=== PATIENT | male | born 1985 | race Caucasian/White ===

== ENCOUNTER 2018-07-26 11:16 | Emergency (ER) | payer BC ==
[2018-07-26] MEDS ORDERED: guaiFENesin 600 MG Tab.ER PO ONE (12:17)
--- NOTE | 2018-07-26 12:35 | EDM.PDOC ---
ED HPI GENERAL MEDICAL PROBLEM - General Chief Complaint: Respiratory Problem Stated Complaint: FLU LIKE SYMPTOMS, SHAKEY/LIGHT HEADED Time Seen by Provider: 07/26/18 12:09 Source of Information: Reports: Patient History Limitations: Reports: No Limitations - History of Present Illness INITIAL COMMENTS - FREE TEXT/NARRATIVE: Patient is a 33-year-old male presents ED complaining of generalized flu like symptoms. States this past developed a cough, fever, headache, body aches, sinus congestion, runny nose, and postnasal drip. States Thursday and Thursday he was very ill and was not able to go to work. States Thursday he was feeling better. Today he went to work and states at times he does feel lightheaded, with generalized muscle aches, and also productive cough. He continues to have some sinus congestion denies any dizziness with standing, body position changes, and/or turning his head left to right. Denies any sore throat, chest pain, shortness of breath, abdominal pain, rash, nausea vomiting, and/or stiff neck. He states multiple coworkers have similar symptoms. There has been no documented fever. This is been subjective only. He does not have any previous past medical history. Currently taking no medications. He's had multiple tubes placed to his ears bilaterally. Alcohol use social. Denies any smoking or recreational drug use. He does no PCP here locally. He did not receive the flu vaccination. Generalized Pain Score (Numeric/FACES): 4 - Related Data Allergies Allergy/AdvReac Type Severity Reaction Status Date / Time No Known Allergies Allergy Verified 07/26/18 11:47 Home Meds: Home Meds . [No Known Home Meds] 07/26/18 [History] Past Medical History - Past Health History Medical/Surgical History: Denies Medical/Surgical History Social & Family History - Tobacco Use Smoking Status *Q: Never Smoker ED ROS GENERAL - Review of Systems Review Of Systems: ROS reveals no pertinent complaints other than HPI. ED EXAM, GENERAL - Physical Exam Exam: See Below Exam Limited By: No Limitations General Appearance: Alert, WD/WN, No Apparent Distress Eye Exam: Bilateral Eye: EOMI, Nystagmus (None noted), PERRL, Vision Changes ( None stated) Ears: Normal External Exam, Normal Canal, Hearing Grossly Normal, Other (TMs bilaterally have scar tissue present. No erythema, swelling, perforation, and/ or drainage noted. Conal light reflexes in the perspective's position.) Nose: Normal Inspection Throat/Mouth: Normal Voice, No Airway Compromise Head: Atraumatic, Normocephalic Neck: Normal Inspection, Supple, Non-Tender, Full Range of Motion. No: Lymphadenopathy (L), Lymphadenopathy (R) Respiratory/Chest: No Respiratory Distress, Lungs Clear, Normal Breath Sounds, No Accessory Muscle Use, Chest Non-Tender Cardiovascular: Normal Peripheral Pulses, Regular Rate, Rhythm, No Murmur Peripheral Pulses: 2+: Radial (L) GI/Abdominal: Normal Bowel Sounds, Soft, Non-Tender, No Organomegaly, No Distention Back Exam: Normal Inspection Extremities: Normal Inspection, Normal Range of Motion, Non-Tender, No Pedal Edema Neurological: Alert, Oriented, CN II-XII Intact, Normal Cognition, Normal Gait, No Motor/Sensory Deficits Psychiatric: Normal Affect, Normal Mood Skin Exam: Warm, Dry, Intact, Normal Color, No Rash Course - Vital Signs Last Recorded V/S: Last Vital Signs Temp 98.5 F 07/26/18 11:47 Pulse 60 07/26/18 11:47 Resp 18 07/26/18 11:47 BP 160/85 H 07/26/18 11:47 Pulse Ox 100 07/26/18 11:47 - Orders/Labs/Meds Orders: Active Orders 24 hr Category Date Time Status EKG 12 Lead [EKG Documentation Completion] [RC] STAT Care 07/26/18 12:29 Active Labs: Laboratory Tests 07/26/18 07/26/18 Range/Units 12:45 12:45 WBC 6.50 (4.23-9.07) K/mm3 RBC 5.26 (4.63-6.08) M/mm3 Hgb 15.9 (13.7-17.5) gm/L Hct 46.3 (40.1-51.0) % MCV 88.0 (79.0-92.2) fl MCH 30.2 (25.7-32.2) pg MCHC 34.3 (32.2-35.5) g/dl RDW Std Deviation 44.0 H (35.1-43.9) fL Plt Count 254 (163-337) K/mm3 MPV 9.5 (9.4-12.3) fl Neutrophils % (Manual) 39 L (40-60) % Band Neutrophils % 0 (0-10) % Lymphocytes % (Manual) 54 H (20-40) % Atypical Lymphs % 0 % Monocytes % (Manual) 4 (2-10) % Eosinophils % (Manual) 3 (0.8-7.0) % Basophils % (Manual) 0 L (0.2-1.2) Platelet Estimate Adequate RBC Morph Comment Normal Sodium 142 (136-145) mEq/L Potassium 3.8 (3.5-5.1) mEq/L Chloride 107 (98-107) mEq/L Carbon Dioxide 24 (21-32) mEq/L Anion Gap 14.8 (5-15) BUN 8 (7-18) mg/dL Creatinine 0.8 (0.7-1.3) mg/dL Est Cr Clr Drug Dosing 144.15 mL/min Estimated GFR (MDRD) > 60 (>60) mL/min BUN/Creatinine Ratio 10.0 L (14-18) Glucose 93 (74-106) mg/dL Calcium 8.7 (8.5-10.1) mg/dL Total Bilirubin 0.3 (0.2-1.0) mg/dL AST 21 (15-37) U/L ALT 51 (16-63) U/L Alkaline Phosphatase 58 (46-116) U/L C-Reactive Protein 1.2 H* (<1.0) mg/dL Total Protein 7.4 (6.4-8.2) g/dl Albumin 3.7 (3.4-5.0) g/dl Globulin 3.7 gm/dL Albumin/Globulin Ratio 1.0 (1-2) Meds: Medications Discontinued Medications Generic Name Dose Route Start Last Admin Trade Name Freq PRN Reason Stop Dose Admin Guaifenesin 1,200 mg 07/26/18 12:17 07/26/18 12:25 Mucinex PO 07/26/18 12:18 1,200 mg ONETIME ONE Administration - Re-Assessments/Exams Free Text/Narrative Re-Assessment/Exam: Patient is concerned he may have influenza and at worst pneumonia. Thus will obtain some basic labs including: CBC, chem 14, CRP, influenza screen, chest x- ray, and also EKG. There is no for a relative's with heart disease. Nor does he have any risk factors himself. Labs reviewed: CBC and chem 14 were essentially normal. CRP is 1.2. Influenza screen was negative. Chest x-ray indicated less than optimal chest x-ray. Nothing acute is suspected on portable chest x-ray. EKG sinus rhythm at a rate of 61 with QTC of 428 and normal IN interval 181. Probable normal early repolarization pattern noted. No acute ST changes noted per reviewed with Dr. Clay. Patient has what appears to be a viral upper respiratory infection. Symptomatic treatment is appropriate. Discharge instructions have been provided. Return precautions discussed with the patient with no further questions or concerns. He agrees with plan. Departure - Departure Time of Disposition: 14:03 Disposition: Home, Self-Care 01 Condition: Good Clinical Impression: Viral upper respiratory tract infection with cough - Discharge Information Instructions: Upper Respiratory Infection, Adult, [id number] Referrals: PCP,Unknown [Ordering Only Provider] - Forms: ED Department Discharge, ED Return to Work/School Form Additional Instructions: Utilize Flonase 1 spray to each nares twice a day, Claritin 10 mg every day, Mucinex 600 mg one tab twice a day, and nasal saline spray 1 spray to each nares every hour while awake. Push the fluids. Ensure adequate rest. Utilize Tylenol and ibuprofen for any headaches/body aches. Follow-up with PCP in the next week if symptoms persist. Please return back to the ED if you develop any new or worsening symptoms. - My Orders Last 24 Hours: My Active Orders 07/26/18 12:29 EKG 12 Lead [EKG Documentation Completion] [RC] STAT - Assessment/Plan Last 24 Hours: My Active Orders 07/26/18 12:29 EKG 12 Lead [EKG Documentation Completion] [RC] STAT
--- NOTE | 2018-07-26 12:53 | CR ---
Chest: Portable view of the chest was obtained. Comparison: No prior chest x-ray. Heart size and mediastinum are normal. Lungs are clear with no acute parenchymal change. Bony structures are unremarkable. Slightly limited inspiratory study is noted. Impression: 1. Less than optimal chest x-ray. Nothing acute is suspected on portable chest x-ray. Diagnostic code #2
== END 2018-07-26 14:47 | disposition home or self-care (01) ==
LOC: JD.ED 11:16
DX: J06.9 Acute upper respiratory infection, unspecified (principal)
CPT/HCPCS: 36415; 71045; 80053; 85007; 85027; 86140; 87804; 93005; 99284; A9270; 99282

== ENCOUNTER 2020-12-08 13:46 | Emergency (ER) | payer BC ==
[2020-12-08] MEDS ORDERED: Ondansetron 4 MG/2 ML SDV IVPUSH ONE (14:09)
[2020-12-08] MEDS ORDERED: Sodium Chloride 0.9% 10 ML Syringe FLUSH PRN ×2 (14:09→14:45)
[2020-12-08] MEDS ORDERED: HYDROmorphone 1 MG/ML Syringe IVPUSH STA (14:09)
[2020-12-08] MEDS ORDERED: Sodium Chloride 0.9% 1,000 ML IV SCH (14:15)
--- NOTE | 2020-12-08 14:22 | EDM.PDOC ---
ED HPI GENERAL MEDICAL PROBLEM - General Chief Complaint: Abdominal Pain Stated Complaint: ABDOMINAL PAIN Time Seen by Provider: 12/08/20 13:57 Source of Information: Reports: Patient, RN Notes Reviewed History Limitations: Reports: No Limitations - History of Present Illness INITIAL COMMENTS - FREE TEXT/NARRATIVE: Patient is a 35-year-old male who presents to the ER for the evaluation of his left lower quadrant abdominal pain. Patient notes that he developed this last night, and it has worsened this morning, and throughout the day, he tried to go to work but ended up having to leave due to the pain. Patient states that he is having waves of pain, he states that they are fairly intense when they do hip. States that it made him sweat profusely due to the pain. He states nothing really seems to make this worse or better, he did take 1 dose of Aleve, but again did not notice much difference. Not complaining of any blood in his urine. States he has had a pain like this about 1 year ago, where he thought he maybe had some gas in his abdomen he took a gas relieving pill and this seemed to help. States that this seems a little bit worse, and not exactly the same so he did not take any gas medication today. Patient states he has had a cholecystectomy, and he still retains his appendix, and does have an umbilical hernia, that is still reducible at this time. He states there is no pain around the umbilical hernia. Patient notes that he had a bowel movement this morning, but it did hurt quite a bit when he put pressure on his abdomen when he had to bear down. Patient denies any other sick-like symptoms, fever/chills, cough/shortness of breath, nausea/vomiting/diarrhea. Has no primary care provider, takes no regular medications, and denies any med allergies. Left Lower Abdomen Pain Score (Numeric/FACES): 8 - Related Data Allergies Allergy/AdvReac Type Severity Reaction Status Date / Time No Known Allergies Allergy Verified 12/08/20 13:56 Home Meds: Home Meds Amoxicillin/Clavulanate K [Augmentin 875-125 MG] 1 tab PO BID #14 tablet [Rx] Past Medical History - Past Health History Medical/Surgical History: Denies Medical/Surgical History Endocrine/Metabolic History: Reports: Obesity/BMI 30+ - Past Surgical History HEENT Surgical History: Reports: Myringotomy w Tube(s) GI Surgical History: Reports: Cholecystectomy Social & Family History - Tobacco Use Tobacco Use Status *Q: Never Tobacco User - Caffeine Use Caffeine Use: Reports: Energy Drinks - Recreational Drug Use Recreational Drug Use: No ED ROS GENERAL - Review of Systems Review Of Systems: Comprehensive ROS is negative, except as noted in HPI. ED EXAM, GI/ABD - Physical Exam Exam: See Below Exam Limited By: No Limitations General Appearance: Alert, WD/WN, No Apparent Distress Respiratory/Chest: No Respiratory Distress, Lungs Clear, Normal Breath Sounds, No Accessory Muscle Use, Chest Non-Tender Cardiovascular: Normal Peripheral Pulses, Regular Rate, Rhythm, No Edema GI/Abdominal Exam: Normal Bowel Sounds, Soft, No Distention, No Mass, Tender (LLQ with exquisite tenderness on palpation. Umbilical hernia is still reducable This is located at 12-1 o clock near the umbilicus), Hernia (umbilical hernia noted at 12-1 o clock, reducable and nontender) Neurological: Alert, Oriented, Normal Cognition, No Motor/Sensory Deficits Psychiatric: Normal Affect, Normal Mood Skin Exam: Warm, Dry, Intact, Normal Color, No Rash Course - Vital Signs Last Recorded V/S: Last Vital Signs Temp 96.5 F L 12/08/20 13:52 Pulse 89 12/08/20 13:52 Resp 18 12/08/20 13:52 BP 163/83 H 12/08/20 13:52 Pulse Ox 98 12/08/20 13:52 - Orders/Labs/Meds Orders: Active Orders 24 hr Category Date Time Status Peripheral IV Care [RC] . DIRECTED Care 12/08/20 14:11 Ordered Abdomen Pelvis w Cont [CT] Stat Exams 12/08/20 14:09 Ordered Sodium Chloride 0.9% [Normal Saline] 1,000 ml Med 12/08/20 14:15 Ordered IV ASDIRECTED Sodium Chloride 0.9% [Saline Flush] Med 12/08/20 14:09 Ordered 10 ml FLUSH ASDIRECTED PRN Sodium Chloride 0.9% [Saline Flush] Med 12/08/20 14:45 Active 10 ml FLUSH ONETIME PRN Peripheral IV Insertion Adult [OM.PC] Stat Oth 12/08/20 14:09 Ordered Medication Orders Sodium Chloride (Normal Saline) 1,000 mls @ 999 mls/hr IV ASDIRECTED TRACEY Last Admin: 12/08/20 14:21 Dose: 999 mls/hr Documented by: JONELLE Sodium Chloride (Sodium Chloride 0.9% 10 Ml Syringe) 10 ml FLUSH ASDIRECTED PRN PRN Reason: Keep Vein Open Last Admin: 12/08/20 14:22 Dose: 10 ml Documented by: JONELLE Sodium Chloride (Sodium Chloride 0.9% 10 Ml Syringe) 10 ml FLUSH ONETIME PRN PRN Reason: IV FLUSH Last Admin: 12/08/20 15:35 Dose: 10 ml Documented by: MICHAEL Labs: Laboratory Tests 12/08/20 12/08/20 12/08/20 Range/Units 14:15 14:15 15:03 WBC 16.48 H (4.23-9.07) K/mm3 RBC 4.81 (4.63-6.08) M/mm3 Hgb 15.0 (13.7-17.5) gm/dl Hct 43.2 (40.1-51.0) % MCV 89.8 (79.0-92.2) fl MCH 31.2 (25.7-32.2) pg MCHC 34.7 (32.2-35.5) g/dl RDW Std Deviation 43.1 (35.1-43.9) fL Plt Count 262 (163-337) K/mm3 MPV 9.6 (9.4-12.3) fl Neut % (Auto) 82.1 H (34.0-67.9) % Lymph % (Auto) 9.0 L (21.8-53.1) % [place] % (Auto) 8.1 (5.3-12.2) % Eos % (Auto) 0.4 L (0.8-7.0) Baso % (Auto) 0.2 (0.1-1.2) % Neut # (Auto) 13.52 H (1.78-5.38) K/mm3 Lymph # (Auto) 1.49 (1.32-3.57) K/mm3 [place] # (Auto) 1.34 H (0.30-0.82) K/mm3 Eos # (Auto) 0.07 (0.04-0.54) K/mm3 Baso # (Auto) 0.03 (0.01-0.08) K/mm3 Manual Slide Review Abnormal smear Sodium 141 (136-145) mEq/L Potassium 3.7 (3.5-5.1) mEq/L Chloride 104 (98-107) mEq/L Carbon Dioxide 25 (21-32) mEq/L Anion Gap 15.7 H (5-15) BUN 15 (7-18) mg/dL Creatinine 1.0 (0.7-1.3) mg/dL Est Cr Clr Drug Dosing 113.17 mL/min Estimated GFR (MDRD) > 60 (>60) mL/min BUN/Creatinine Ratio 15.0 (14-18) Glucose 108 H (70-99) mg/dL Calcium 8.6 (8.5-10.1) mg/dL Total Bilirubin 0.5 (0.2-1.0) mg/dL AST 21 (15-37) U/L ALT 70 H (16-63) U/L Alkaline Phosphatase 84 (46-116) U/L C-Reactive Protein 10.6 H* (<1.0) mg/dL Total Protein 7.8 (6.4-8.2) g/dl Albumin 3.8 (3.4-5.0) g/dl Globulin 4.0 gm/dL Albumin/Globulin Ratio 1.0 (1-2) Lipase 91 (73-393) U/L Urine Color Yellow (Yellow) Urine Appearance Slt cloudy H (Clear) Urine pH 6.0 (5.0-8.0) Ur Specific [place] > or = 1.030 (1.005-1.030) Urine Protein Trace H (Negative) Urine Glucose (UA) Negative (Negative) Urine Ketones Trace H (Negative) Urine Occult Blood Negative (Negative) Urine Nitrite Negative (Negative) Urine Bilirubin Negative (Negative) Urine Urobilinogen 0.2 (0.2-1.0) Ur Leukocyte Esterase Negative (Negative) Urine RBC 0-5 (0-5) /hpf Urine WBC 0-5 (0-5) /hpf Ur Squamous Epith Cells 0-5 (0-5) /hpf Urine Bacteria Few (FEW) /hpf Urine Mucus Many H (FEW) /hpf Meds: Medications Generic Name Dose Route Start Last Admin Trade Name Freq PRN Reason Stop Dose Admin Sodium Chloride 1,000 mls @ 999 mls/hr 12/08/20 14:15 12/08/20 14:21 Normal Saline IV 999 mls/hr ASDIRECTED TRACEY Administration Sodium Chloride 10 ml 12/08/20 14:09 12/08/20 14:22 Sodium Chloride 0.9% 10 Ml Syringe FLUSH 10 ml ASDIRECTED PRN Administration Keep Vein Open Sodium Chloride 10 ml 12/08/20 14:45 12/08/20 15:35 Sodium Chloride 0.9% 10 Ml Syringe FLUSH 10 ml ONETIME PRN Administration IV FLUSH Discontinued Medications Generic Name Dose Route Start Last Admin Trade Name Ronaldq PRN Reason Stop Dose Admin Diatrizoate Meglum/Diatrizoate Sod 120 ml 12/08/20 14:45 12/08/20 15:35 Diatrizoate Meglumine/Diatrizoate Sodium 37% 120 Ml Bottle PO 12/08/20 14:46 30 ml ONETIME ONE Administration Hydromorphone HCl 1 mg 12/08/20 14:09 12/08/20 14:21 Hydromorphone 1 Mg/Ml Syringe IVPUSH 12/08/20 14:10 1 mg ONETIME STA Administration Iopamidol 50 ml 12/08/20 14:45 12/08/20 15:35 Iopamidol 612 Mg/Ml 50 Ml Sdv IVPUSH 12/08/20 14:46 50 ml ONETIME ONE Administration Iopamidol 100 ml 12/08/20 14:45 12/08/20 15:35 Iopamidol 612 Mg/Ml 100 Ml Bottle IVPUSH 12/08/20 14:46 100 ml ONETIME ONE Administration Ondansetron HCl 4 mg 12/08/20 14:09 12/08/20 14:22 Ondansetron 4 Mg/2 Ml Sdv IVPUSH 12/08/20 14:10 4 mg ONETIME ONE Administration - Re-Assessments/Exams Free Text/Narrative Re-Assessment/Exam: 12/08/20 14:25 Patient presents to the ER for his left lower quadrant abdominal pain. We will go ahead and get some labs, given IV pain meds, nausea meds, and do a CT for further investigation, patient is exquisitely tender on his left lower quadrant, it does seem to radiate more to the midline as well. 12/08/20 15:22 The patient's labs have resulted, CBC is impressive for a white count at 16.48 with 82% neutrophils on the auto differential, metabolic panel is essentially unremarkable but the patient's CRP is 10.6, CT is still pending. 12/08/20 16:[address] has been performed, there is a rather large umbilical hernia, but no obvious inflammation around that area, there is an area in his left lower quadrant, on the descending colon that does appear to have some inflammation, suspect possible diverticulitis. Official radiology read is still pending at this time. 12/08/20 16:[address] does demonstrate an area in the low descending colon, of about 10 cm that is consistent with acute diverticulitis, there is no evidence of obstruction no abscess is identified. There are no findings of appendicitis. The umbilical hernia does contain fat and nonobstructed bowel. We will go ahead and start the patient on oral antibiotics, and pain medications have him follow more of a clear liquid diet over the next few days if he is nauseated, and have him follow-up if not feeling much better. Departure - Departure Time of Disposition: 16:15 Disposition: Home, Self-Care 01 Condition: Good Clinical Impression: Diverticulitis large intestine w/o perforation or abscess w/o bleeding - Discharge Information *PRESCRIPTION DRUG MONITORING PROGRAM REVIEWED*: No *COPY OF PRESCRIPTION DRUG MONITORING REPORT IN PATIENT ROBB: No Instructions: Diverticulitis, [id number] Referrals: PCP,None [Primary Care Provider] - Forms: ED Department Discharge Additional Instructions: You were evaluated in the ER today for left lower abdominal pain. Work-up in the ER today did include laboratory evaluation and an abdomen pelvis CT. Your white count was elevated at 16,000, and your CRP was also elevated at 10.6. CT did demonstrate acute diverticulitis within your descending colon, as a source of your pain for today's purposes. You were given a dose of IV pain medications in the ER, this seemed to help relieve most of your pain. You have been prescribed some antibiotics, Augmentin, 1 tablet 2 times a day u ntil gone. Please note you can start this medication as soon as you get them filled today. This medication was electronically sent to [facility] [employer]. Please note this antibiotic can cause some diarrhea, if you are not already doing so you may want to start a probiotic while being on this antibiotic, a probiotic like Florajen, or yogurts that have active cultures in them like a Indonesian yogurt, or Entyvio would also be okay to use. You can try to stick to more of a clear liquid diet over the next few days to see if this helps relieve some of your abdominal pain, you may advance to a bland diet as tolerated. As far as pain medication, you may take some Tylenol, ibuprofen, or Aleve as directed on the bottles for ongoing pain management. If you should develop any nausea or vomiting, so much that you cannot keep any food or fluids down, or any worsening symptoms like fevers or chills, or if you cannot have a bowel movement please do not hesitate to return to the ER at any time for further management. Sepsis Event Note (ED) - Evaluation Sepsis Screening Result: No Definite Risk - Focused Exam Vital Signs: Vital Signs Temp Pulse Resp BP Pulse Ox 12/08/20 13:52 96.5 F L 89 18 163/83 H 98 - My Orders Last 24 Hours: My Active Orders 12/08/20 14:09 Abdomen Pelvis w Cont [CT] Stat Sodium Chloride 0.9% [Saline Flush] 10 ml FLUSH ASDIRECTED PRN Peripheral IV Insertion Adult [OM.PC] Stat 12/08/20 14:11 Peripheral IV Care [RC] . DIRECTED 12/08/20 14:15 Sodium Chloride 0.9% [Normal Saline] 1,000 ml IV ASDIRECTED 12/08/20 14:45 Sodium Chloride 0.9% [Saline Flush] 10 ml FLUSH ONETIME PRN - Assessment/Plan Last 24 Hours: My Active Orders 12/08/20 14:09 Abdomen Pelvis w Cont [CT] Stat Sodium Chloride 0.9% [Saline Flush] 10 ml FLUSH ASDIRECTED PRN Peripheral IV Insertion Adult [OM.PC] Stat 12/08/20 14:11 Peripheral IV Care [RC] . DIRECTED 12/08/20 14:15 Sodium Chloride 0.9% [Normal Saline] 1,000 ml IV ASDIRECTED 12/08/20 14:45 Sodium Chloride 0.9% [Saline Flush] 10 ml FLUSH ONETIME PRN
[2020-12-08] MEDS ORDERED: Iopamidol 612 MG/ML 50 ML SDV IVPUSH ONE (14:45)
[2020-12-08] MEDS ORDERED: Iopamidol 612 MG/ML 100 ML Bottle IVPUSH ONE (14:45)
[2020-12-08] MEDS ORDERED: Diatrizoate Meglumine/Diatrizoate Sodium 37% 120 ML Bottle PO ONE (14:45)
--- NOTE | 2020-12-09 11:49 | CT ---
CT abdomen and pelvis Technique: Multiple axial sections were obtained from above the dome of the diaphragm inferiorly through the pubic symphysis. Intravenous contrast was utilized. Oral contrast has also been given. Delayed images were obtained through the bladder. Reconstructed coronal and sagittal images were obtained. Comparison: Prior right upper quadrant abdominal ultrasound in 02/06/14. Findings: Inflammatory change is seen at the junction of the descending and sigmoid colon surrounding a diverticula which is compatible with diverticulitis. Anterior abdominal wall hernia is noted which contains nondilated small bowel loops. This appears periumbilical in location. Visualized lung bases show nothing acute. Liver contains no focal abnormality. Spleen size is normal. Small amount of contrast is noted refluxing into the distal esophagus. Adrenal glands show no nodule. Pancreas shows no discrete abnormality. There appears to be a duodenal cyst off the pancreas measuring approximately 3.1 cm. Surgical clips are seen from prior cholecystectomy. Kidneys show symmetric contrast enhancement without hydronephrosis or mass. Abdominal aorta shows no aneurysm. No retroperitoneal adenopathy or mesenteric abnormalities are seen. No pelvic mass or adenopathy is appreciated. Delayed images show contrast within the ureters and within the bladder. Bone window settings were reviewed. No acute osseous abnormality is appreciated. Impression: 1. Inflammatory change at the junction of the descending and sigmoid colon compatible with diverticulitis. 2. Anterior abdominal hernia containing nondilated small bowel loops which is periumbilical in location compatible with abdominal wall hernia. 3. Duodenal diverticulum is seen. 4. Nothing acute is otherwise seen. Diagnostic code #3 I agree with preliminary report from [facility], finalized on 12/08/20, 5:03 PM CDT, code 1
== END 2020-12-08 16:33 | disposition home or self-care (01) ==
LOC: JD.ED 13:46
DX: K57.32 Diverticulitis of large intestine without perforation or abscess without bleeding (principal); E66.9 Obesity, unspecified; Z68.41 Body mass index [BMI] 40.0-44.9, adult
CPT/HCPCS: 36415; 74177; 80053; 81001; 83690; 85025; 86140; 96374; 96375; 99284; J1170; J2405; J7030; Q9963; Q9967